=== PATIENT | male | born 1955 | race Native Hawaiian/Other Pacific Islander ===

== ENCOUNTER 2020-01-30 08:37 | Outpatient (CLI) | payer OTHER | END 2020-01-30 18:55 | disposition home or self-care (01) | LOC: US 08:37 | PROVIDERS: ATTEND Nurse Practitioner | DX: R13.12 Dysphagia, oropharyngeal phase (principal) ==

== ENCOUNTER 2020-08-02 11:28 | Outpatient (CLI) | payer OTHER | END 2020-08-02 21:48 | disposition home or self-care (01) | LOC: RAD 11:28 | PROVIDERS: ATTEND Nurse Practitioner | DX: R04.2 Hemoptysis (principal) ==

== ENCOUNTER 2020-09-16 11:36 | Outpatient (CLI) | payer OTHER | END 2020-09-16 21:05 | disposition home or self-care (01) | LOC: RAD 11:36 | PROVIDERS: ATTEND Nurse Practitioner Family | DX: M25.552 Pain in left hip (principal); M25.511 Pain in right shoulder ==

== ENCOUNTER 2020-12-10 08:57 | Outpatient (CLI) | payer OTHER ==
[2020-12-10 09:24] LABS: PLATELET COUNT 288 K/uL (142-355)
[2020-12-10 09:32] LABS: POTASSIUM 3.8 mmol/L (3.6-5.2)
== END 2020-12-10 19:54 | disposition home or self-care (01) ==
LOC: LABW 08:57
PROVIDERS: ATTEND Internal Medicine Cardiovascular Disease
DX: Z79.899 Other long term (current) drug therapy (principal)
CPT/HCPCS: 36415; 80053; 80061; 85027

== ENCOUNTER 2021-07-07 07:51 | Outpatient (CLI) | payer OTHER ==
[2021-07-07 08:22] LABS: PLATELET COUNT 277 K/uL (142-355)
== END 2021-07-07 19:01 | disposition home or self-care (01) ==
LOC: LABW 07:51
PROVIDERS: ATTEND Internal Medicine Cardiovascular Disease
DX: Z79.899 Other long term (current) drug therapy (principal)
CPT/HCPCS: 36415; 80053; 80061; 85027